=== PATIENT | male | born 1950 | race Caucasian/White ===

== ENCOUNTER 2018-06-05 13:18 | Emergency (ER) | payer MEDICARE | END 2018-06-05 13:45 | disposition home or self-care (01) | LOC: EDH 13:18 | DX: F10.129 Alcohol abuse with intoxication, unspecified (principal); I25.2 Old myocardial infarction; Z88.1 Allergy status to other antibiotic agents; Z95.1 Presence of aortocoronary bypass graft; Z87.891 Personal history of nicotine dependence ==

== ENCOUNTER → 2024-06-02 | Outpatient (CLI) | payer OTHER | END | disposition home or self-care (01) | LOC: RAH 10:00 | PROVIDERS: ATTEND Internal Medicine Cardiovascular Disease | DX: I51.7 Cardiomegaly (principal); I51.89 Other ill-defined heart diseases; I42.0 Dilated cardiomyopathy | CPT/HCPCS: 93306 ==

== ENCOUNTER 2025-01-28 07:03 | Day surgery (SDC) | payer OTHER ==
[2025-01-28] VITALS (11 sets, daily range): BP systolic 106–133; BP diastolic 72–86; PULSE 67–74; RESP 15–17; TEMP 97.3–98
[~2025-01-28] VITALS: Ht 165.1 cm; Wt 77.1 kg
[2025-01-28] MEDS ORDERED: MULT-1367 PO (09:09)
[2025-01-28] MEDS ORDERED: VITAMIN B12 PO (09:09)
[2025-01-28] MEDS ORDERED: HYDR25TA PO (09:09)
[2025-01-28] MEDS ORDERED: FLUT1BLS3 IH (09:09)
[2025-01-28] MEDS ORDERED: CARV25TA PO (09:09)
[2025-01-28] MEDS ORDERED: HYDR500C2 PO (09:09)
[2025-01-28] MEDS ORDERED: TAMS-55 PO (09:09)
[2025-01-28] MEDS ORDERED: VALS160T29 PO (09:09)
[2025-01-28] MEDS ORDERED: MONT-39 PO (09:09)
[2025-01-28] MEDS ORDERED: CALC625T PO (09:09)
[2025-01-28] MEDS ORDERED: FOLI0.8C PO (09:09)
[2025-01-28] MEDS ORDERED: CREST PO (09:09)
[2025-01-28] MEDS ORDERED: ASPI-1197 PO (09:09)
[2025-01-28] MEDS ORDERED: FLUN25H NS (09:09)
[2025-01-28] MEDS ORDERED: SOTA80TA PO (09:09)
[2025-01-28] MEDS: 0.9%NACL 1000ML 1,000 ML IV ONE (09:14)
[2025-01-28] MEDS ORDERED: proPOFol 10 MG/ML 20ML VIAL IV ONE (10:04)
[2025-01-28] MEDS ORDERED: FENTanyl CITRate PF 50 MCG/1 ML 2ML VIAL ONE (11:21)
== END 2025-01-28 11:32 | disposition home or self-care (01) ==
LOC: ENDO 07:03 → DAH 07:03 → ENDO 11:32
PROVIDERS: ATTEND Internal Medicine
DX: Z12.11 Encounter for screening for malignant neoplasm of colon (principal); D12.2 Benign neoplasm of ascending colon; D12.5 Benign neoplasm of sigmoid colon; D12.3 Benign neoplasm of transverse colon; K57.30 Diverticulosis of large intestine without perforation or abscess without bleeding; R19.5 Other fecal abnormalities; J44.1 Chronic obstructive pulmonary disease with (acute) exacerbation; I10 Essential (primary) hypertension; Z79.899 Other long term (current) drug therapy; Z95.1 Presence of aortocoronary bypass graft; Z79.82 Long term (current) use of aspirin; Z87.898 Personal history of other specified conditions; Z95.0 Presence of cardiac pacemaker; Z88.8 Allergy status to other drugs, medicaments and biological substances
CPT/HCPCS: 45380; 45385; J7030 ×2; J2704; A4649; A4215; A4223; A7002; A4222; A4221; A4663; A4606; J3010; J3490